=== PATIENT | male | born 1995 | race Caucasian/White ===

== ENCOUNTER 2016-07-29 15:08 | Emergency (ER) | payer BC ==
[2016-07-29] MEDS ORDERED: ONDANSETRON DISINTEGRATING 4 MG TAB PO ONE (15:18)
[2016-07-29] MEDS ORDERED: ONDANSETRON DISINTEGRATING 4 MG TAB ONE (15:19)
--- NOTE | 2016-07-29 16:18 | EDPHY ---
H & P Time Seen by Provider: 07/29/16 16:17 HPI/ROS: CHIEF COMPLAINT: Headache after trauma HISTORY OF PRESENT ILLNESS: 21-year-old man was snowboarding at around 2:00 p.m. he remembers going toward the trees and crashing into a tree. He does not remember anything until waking up and feeling a bit out of it. He was wearing a helmet. He has since developed a 6/10 moderate right frontal headache which is light sensitive and he describes is a severe "wicked headache" but no actual vomiting. Does have some nausea. No neck pain or weakness or numbness in extremities. REVIEW OF SYSTEMS: Eye: Light sensitivity but no double vision ENT: no sore throat Cardiac: no chest pain or syncope Pulmonary: no cough or SOB Abdomen: no vomiting, diarrhea, abdominal pain Musculoskeletal: no back pain Skin: no rash Neuro: HPI Constitutional: no fever : no urinary symptoms A comprehensive 10 point review of systems is otherwise negative aside from elements mentioned in the history of present illness. PAST MEDICAL HISTORY: Negative Social history: No alcohol, lives in [place] General Appearance: Alert and conversant, cooperative. Eyes: No scleral icterus. ENT, Mouth: Normal mucous membranes. Respiratory: Normal respiratory effort, breath sounds equal, lungs are clear to auscultation. Cardiovascular: Regular rate and rhythm. Gastrointestinal: Abdomen is soft and non tender. Neurological: Alert and oriented x3. Normally conversant. Face symmetric, normal movement and sensation in all extremities. Skin: Warm and dry, no rashes. No lacerations or bruising. Musculoskeletal: No cervical thoracic or lumbar spine tenderness. Psychiatric: Not agitated. Emergency Department course/MDM: Amnesia, what the patient describes as a severe headache, nausea. CT scanning discussed and consented. Oral acetaminophen and Zofran ODT. 1700: Results discussed with the patient, oral ibuprofen, concussion instructions. Warned no further snowboarding other contact sports until completely resolved and cleared by follow-up physician. Smoking Status: Never smoked Constitutional: Initial Vital Signs Temperature (C) 37 C 07/29/16 15:16 Heart Rate 86 07/29/16 15:16 Respiratory Rate 15 07/29/16 15:16 Blood Pressure 136/83 H 07/29/16 15:16 O2 Sat (%) 97 07/29/16 15:16 O2 Delivery Mode Room Air Allergies/Adverse Reactions: No Known Allergies Allergy (Unverified 07/29/16 15:16) Home Medications: Medication Instructions Recorded NK [No Known Home Meds] 07/29/16 Medical Decision Making - Diagnostics Imaging: Noncontrast head CT reviewed by myself and with Jose De Jesuser at 4:57 p.m., normal. Differential Diagnosis: Differential diagnosis considered for head injury including but not limited to concussion, skull fracture, intraparenchymal contusion, subarachnoid, subdural and epidural hematoma. - Data Points Medications Given: Discontinued Medications Acetaminophen (Tylenol) 650 mg PO EDNOW ONE Stop: 07/29/16 16:30 Last Admin: 07/29/16 16:54 Dose: 650 mg Ondansetron HCl (Zofran Odt) 4 mg PO EDNOW ONE Stop: 07/29/16 15:19 Last Admin: 07/29/16 15:20 Dose: 4 mg Departure - Departure Disposition: Home, Routine, Self-Care Clinical Impression: Concussion Qualifiers: Encounter type: initial encounter Loss of consciousness presence/duration: with LOC of unspecified duration Qualified Code(s): S06.0X9A - Concussion with loss of consciousness of unspecified duration, initial encounter Condition: Good Instructions: Concussion (ED) Additional Instructions: Follow-up with your physician or our neurology specialist within 1-2 weeks. No snowboarding or other potentially contact sports until your asymptomatic and have been cleared by follow-up physician. Referrals: Carrie Diana DO [Doctor of Osteopathy] - As per Instructions
[2016-07-29] MEDS ORDERED: ACETAMINOPHEN 325 MG TAB PO ONE (16:29)
[2016-07-29] MEDS ORDERED: IBUPROFEN 600 MG TAB PO ONE (16:57)
[2016-07-29 17:35] VITALS: BP 121/73; PULSE 70; RESP 12; TEMP 98.8; O2SAT 96
== END 2016-07-29 17:35 | disposition home or self-care (01) ==
DX: S06.0X9A Concussion with loss of consciousness of unspecified duration, initial encounter (principal); V00.318A Other snowboard accident, initial encounter; Y93.23 Activity, snow (alpine) (downhill) skiing, snowboarding, sledding, tobogganing and snow tubing